=== PATIENT | female | born 1995 | race Two or more races ===

== ENCOUNTER 2024-04-29 13:55 | Emergency (ER) | payer MEDICAID, SELFPAY ==
[2024-04-29 13:56] VITALS: BMI 25.1
[2024-04-29 14:07] VITALS: BP 136/88; PULSE 80; RESP 18; TEMP 36.9; O2SAT 96
--- NOTE | 2024-04-29 14:17 | EDNOTE_ITS ---
Upper Respiratory Inf. RME/HPI General Chief Complaint: Flu Like Symptoms Stated Complaint: SORE THROAT, DISCHARGE FROM EYES, EAR PAIN Time Seen by Provider: 04/29/24 14:04 Arrival date/time: 04/29/24 13:55 RME / HPI RME / HPI Narrative: 29-year-old female patient with no significant medical history, came in for evaluation regarding her. Patient's been having ear ache for several days, getting worse, associated with redness and yellowish discharge of the eyes bilateral for several days also. Also complaining of on and off fever. Denies any cough denies any other complaints no medications taken prior to arrival. Related Data Previous Rx's ?Medication ?Instructions ?Recorded acetaminophen-caffeine 500 mg-65 1 tab PO Q6H PRN pain #60 tabs 09/13/21 mg tablet (Excedrin Tension Headache) ibuprofen 600 mg tablet 600 mg PO Q6H PRN pain #30 tabs 09/13/21 loratadine 10 mg tablet 10 mg PO QDAY #30 tabs 02/26/23 ibuprofen 600 mg tablet 600 mg PO TID PRN pain #30 tabs 07/30/23 amoxicillin 875 mg-potassium 1 tab PO BID #14 tabs 04/29/24 clavulanate 125 mg tablet neomycin 3.5 mg-polymyxin 10,000 1 drp ophthalmic (eye) TID 7 days 04/29/24 unit-hydrocort 10 mg/mL eye #7.5 mL drop,susp Allergies Allergy/AdvReac Type Severity Reaction Status Date / Time No Known Allergies Allergy Verified 04/29/24 13:58 Review of Systems Review of Systems Narrative Review of Systems: Review of system reviewed and within normal limits except mentioned in HPI ED Exam Narrative Physical exam: VITAL SIGNS: Reviewed. GENERAL APPEARANCE: Alert and interactive, follows commands, no acute distress, HEAD AND FACE: Non-traumatic. ENT: PERRL, injected conjunctiva, with yellowish crusting noted on the eyelids, eyelid no trauma, Mucous membrane moist. Bilateral tympanic membrane with erythema, bulging and tender NECK: Supple, nontender, no nuchal rigidity. CHEST: No tenderness, no crepitus, no paradoxical movement, no retractions. LUNGS: Clear, well ventilated, symmetric, no rales, no wheezing, no ronchi, no stridor, good breath sounds bilaterally. HEART: Regular rate, regular rhythm, no murmur, no gallops. GENITAL: Deferred. NEUROLOGICAL: Gross motor function intact sensory function intact, Appropriate for age. MUSCULOSKELETAL: low back nontender, full range of motion. EXTREMITIES: Nontender, full range of motion. SKIN: Color pink, dry, no rash, no lacerations, no abrasions, no contusions. LYMPHATICS: Deferred. Course Quality Measures none Orders Category Date Time Status Amoxicillin/Pot Clav 875 [Augmentin 875] Med 04/29/24 14:13 Discontinued 1 tab PO X1 ONE Erythromycin Op Oint 0.5% Med 04/29/24 14:11 Discontinued 0.1 gm BOTH EYES X1 ONE Erythromycin Op Oint 0.5% Med 04/29/24 14:11 Discontinued 0.1 gm BOTH EYES X1 ONE Vital Signs Vital signs: Vital Signs Temperature 98.4 F 04/29/24 14:07 Pulse Rate 80 04/29/24 14:07 Respiratory Rate 18 04/29/24 14:07 Blood Pressure 136/88 H 04/29/24 14:07 Pulse Oximetry (%) 96 04/29/24 14:07 Oxygen Delivery Method Room Air 04/29/24 14:07 Upper Respiratory Infection MDM Narrative MDM Narrative:: 29-year-old female patient with no significant medical history, came in for evaluation regarding her. Patient's been having ear ache for several days, getting worse, associated with redness and yellowish discharge of the eyes bilateral for several days also. Also complaining of on and off fever. Denies any cough denies any other complaints no medications taken prior to arrival. Patient was given Augmentin for otitis media. And was also given erythromycin eye ointment for eye infection. Patient stable discharge Patient data External records reviewed:: None Clinical information provided by:: none Social determinants that could affect healthcare access:: none Patient has the following chronic illnesses:: None How is presenting disease/condition affected by chronic disease/condition?: no chronic disease Evaluation data The following diagnostics were reviewed and interpreted by me:: other (specify) (None) Lab and/or radiology exams considered but not ordered:: none Interpretation Summary: None Medications / Prescriptions Medications or Prescriptions considered but not ordered:: None Medication administrations:: Medication Administration History Discontinued Medications Amoxicillin/Clavulanate Potassium (Amoxicillin/Pot Clav 875 Tablet) 1 tab PO X1 ONE Stop: 04/29/24 14:14 Erythromycin (Erythromycin Op Oint 0.5% 1 Gm Packet) 0.1 gm BOTH EYES X1 ONE Stop: 04/29/24 14:12 Erythromycin (Erythromycin Op Oint 0.5% 1 Gm Packet) 0.1 gm BOTH EYES X1 ONE Stop: 04/29/24 14:12 Amoxicillin stability cassette, erythromycin Consultations Consultation(s) initiated? (list below): No Diagnosis Upper Respiratory Differential Diagnosis: upper respiratory infection, viral infection and other (Otitis media, conjunctivitis) Most likely diagnosis given after review of the tests above:: Otitis media, conjunctivitis Admission Indicated Admission indicated?: not indicated Explain why admission is indicated or not indicated:: Stable for discharge Admission Request Was there a request for admission?: No Disposition Plan Disposition Plan: Discharge Discharge Attestation Discharge Attestation: The patient was given an opportunity to ask questions and understood the discharge instructions. Discharge instructions specifically effects, indications for sooner follow up or return to the emergency department, and the expected course of current diagnosis. Patient condition: Stable Discharge Plan Plan Patient Disposition: HOME (Self Care) Disposition Comment: stable Prescriptions/Referrals Prescriptions/Med Rec: New amoxicillin-pot clavulanate 875-125 mg tablet 1 tab PO BID Qty: 14 0RF [id number] 3.5-10,000-10 mg-unit-mg/mL drops,suspension 1 drp ophthalmic (eye) TID 7 Days Qty: 7.5 0RF No Action ibuprofen 600 mg tablet 600 mg PO Q6H PRN (Reason: pain) Qty: 30 0RF Excedrin Tension Headache 500-65 mg tablet 1 tab PO Q6H PRN (Reason: pain) Qty: 60 0RF ibuprofen 600 mg tablet 600 mg PO TID PRN (Reason: pain) Qty: 30 0RF loratadine 10 mg tablet 10 mg PO QDAY Qty: 30 0RF Problem List Clinical Impression: Otitis media, Conjunctivitis Patient/Caregiver Discharge Instructions Discharge Activity: activity as tolerated Education Materials: ED Otitis Media Antibiotic ... Additional Instructions: Thank you for the opportunity for serving you today. You are stable for discharged . You are advised to: Follow-up with your PCP in 1 to 2 days Return to ED for worsening of symptoms Increase oral fluids Take medication as prescribed Print Language: Italian Stand Alone Forms: Lisa Award Info., Patient Portal Info Letter PA/COMPETENCY EVALUATED NURSE AIDE Supervising Physician PA/COMPETENCY EVALUATED NURSE AIDE Supervising Physician: MD Gabbi
[2024-04-29] MEDS: AMOXICILLIN/POT CLAV 875 TABLET 1 TAB PO (14:22)
[2024-04-29] MEDS: Erythromycin Op Oint 0.5% 1 GM PACKET BOTH EYES (14:22)
== END 2024-04-29 14:37 | disposition home or self-care (01) ==
LOC: SERX 14:34
PROVIDERS: Emergency Provider Emergency Medicine; PCP Family Medicine
DX: H66.93 Otitis media, unspecified, bilateral (principal); H10.9 Unspecified conjunctivitis
CPT/HCPCS: 99282; A9270

== ENCOUNTER 2024-06-11 20:19 | Emergency (ER) | payer MEDICAID, SELFPAY ==
[2024-06-11 20:35] VITALS: BP 109/86; PULSE 74; RESP 18; TEMP 37.2; O2SAT 100
--- NOTE | 2024-06-11 20:49 | EDNOTE_ITS ---
ED Eye Problem RME/HPI General Chief complaint: Head Injury Stated complaint: SOMETHING FELL ON HER FACE Time Seen by Provider: 06/11/24 20:27 Source: patient, RN notes reviewed and old records reviewed Arrival date/time: 06/11/24 20:19 Mode of arrival: ambulatory Limitations: no limitations RME / HPI RME / HPI Narrative: 29yof presents to the ED for left eye redness and irritation today. 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 Patient irrigated and washed out left eye prior to ED arrival without relief. No vision changes, floaters, discharge or light sensitivity reported Related Data Previous Rx's ?Medication ?Instructions ?Recorded acetaminophen-caffeine 500 mg-65 1 tab PO Q6H PRN pain #60 tabs 09/13/21 mg tablet (Excedrin Tension Headache) ibuprofen 600 mg tablet 600 mg PO Q6H PRN pain #30 tabs 09/13/21 loratadine 10 mg tablet 10 mg PO QDAY #30 tabs 02/26/23 ibuprofen 600 mg tablet 600 mg PO TID PRN pain #30 tabs 07/30/23 amoxicillin 875 mg-potassium 1 tab PO BID #14 tabs 04/29/24 clavulanate 125 mg tablet ciprofloxacin HCl 0.3 % eye drops See Rx Instructions ophthalmic 06/11/24 (eye) .COMPLEX #5 mL Allergies Allergy/AdvReac Type Severity Reaction Status Date / Time No Known Allergies Allergy Verified 06/11/24 20:23 Review of Systems Review of Systems Systems Reviewed: All systems reviewed, normal except as documented Eyes Eyes: Denies blurry vision, Denies eye discharge, Denies floaters, Reports irritation and Denies photophobia Comments: Reports redness Past Medical History Surgical History OTHER SURGICAL HX: Denies past surgical history appendectomy Social History SMOKING STATUS: Never smoker SUBSTANCE USE: does not use ALCOHOL: Never Past Medical History Comments PMH COMMENT: Denies past medical history ED Exam General Limitations: Present no limitations General appearance: Present alert and in no apparent distress Head Head exam: Present atraumatic and normocephalic Eye Eye exam: Present PERRL, EOMI and conjunctival injection (Left); Absent periorbital swelling or periorbital tenderness ENT ENT exam: Present normal exam and mucous membranes moist Neck Neck exam: Present normal inspection and full ROM Chest Chest inspection: Present normal inspection and symmetric chest wall rise Respiratory Respiratory exam: Present normal lung sounds bilaterally; Absent respiratory distress Cardiovascular Cardiovascular exam: Present regular rate and normal rhythm Extremities Exam Extremities exam: Present normal inspection and full ROM Neurological Exam Neurological exam: Present alert and oriented X3 Psychiatric Psychiatric exam: Present normal affect and normal mood Skin Skin exam: Present warm, dry and intact; Absent rash Course Quality Measures none Orders Category Date Time Status Gonsalez Lamp to Bedside X1 Care 06/11/24 20:49 Completed Fluorescein Sodium [[id number]] Med 06/11/24 20:49 Discontinued 1 mg LEFT EYE X1 ONE TETRACAINE Op Sarah 0.5% [Pontocaine Op Sarah 0.5%] Med 06/11/24 20:49 Discontinued 1 drop LEFT EYE X1 ONE Vital Signs Vital signs: Vital Signs Temperature 98.9 F 06/11/24 20:35 Pulse Rate 74 06/11/24 20:35 Respiratory Rate 18 06/11/24 20:35 Blood Pressure 109/86 H 06/11/24 20:35 Pulse Oximetry (%) 100 06/11/24 20:35 Oxygen Delivery Method Room Air 06/11/24 20:35 Procedures -ED Gonsalez Lamp Exam Left eye: Flourescein uptake:: Yes Gonsalez Lamp Findings: Corneal abrasion Additional comments: No FB Eye MDM Narrative MDM Narrative:: 29yof presents to the ED for left eye redness and irritation today. 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 Patient irrigated and washed out left eye prior to ED arrival without relief. No vision changes, floaters, discharge or light sensitivity reported Exam findings c/w corneal abrasion and conjunctivitis. Will rx prophylactic antibiotic drops. Encouraged cool compresses. Stable for discharge, RTED precautions given for Patient data External records reviewed:: [facility] previous records (04/29/2024 ED visit for conjunctivitis) Clinical information provided by:: patient Social determinants that could affect healthcare access:: other (specify) (Poor access to healthcare, acculturation difficulty) Patient has the following chronic illnesses:: None How is presenting disease/condition affected by chronic disease/condition?: no chronic disease Evaluation data The following diagnostics were reviewed and interpreted by me:: other (specify) (None) Lab and/or radiology exams considered but not ordered:: CT orbits: No history of trauma Interpretation Summary: na Medications / Prescriptions Medications or Prescriptions considered but not ordered:: None Medication administrations:: Medication Administration History Discontinued Medications Fluorescein Sodium (Fluorescein Sod 1 Mg Strp) 1 mg LEFT EYE X1 ONE Stop: 06/11/24 20:50 Last Admin: 06/11/24 21:25 Dose: 1 mg Documented By: RAMAN Tetracaine HCl (Tetracaine Pf Op Sarah 0.5% 4 Ml Drpette) 1 drop LEFT EYE X1 ONE Stop: 06/11/24 20:50 Last Admin: 06/11/24 21:25 Dose: 1 drop Documented By: RAMAN Above medications administered in ED Consultations Consultation(s) initiated? (list below): No Diagnosis Eye Problem Differential Diagnosis: corneal abrasion, conjunctivitis, acute iritis, hyphema, periorbital cellulitis, subconjunctival hemorrhage, corneal ulcer and ruptured globe Most likely diagnosis given after review of the tests above:: Corneal abrasion, conjunctivitis Admission Indicated Admission indicated?: not indicated Admission Request Was there a request for admission?: No Disposition Plan Disposition Plan: Discharge Discharge Attestation Discharge Attestation: The patient and all family members were given an opportunity to ask questions and understood the discharge instructions. Discharge instructions specifically effects, indications for sooner follow up or return to the emergency department, and the expected course of current diagnosis. Patient condition: Stable Discharge Plan Plan Patient Disposition: HOME (Self Care) Patient condition on transfer: Stable Prescriptions/Referrals Prescriptions/Med Rec: New ciprofloxacin HCl 0.3 % drops See Rx Instructions .ROUTE .COMPLEX Qty: 5 0RF Rx Instructions: put 1-2 drps in affected eye every 2hr while awake x2 days; then every 4hr x5 days No Action ibuprofen 600 mg tablet 600 mg PO Q6H PRN (Reason: pain) Qty: 30 0RF Excedrin Tension Headache 500-65 mg tablet 1 tab PO Q6H PRN (Reason: pain) Qty: 60 0RF ibuprofen 600 mg tablet 600 mg PO TID PRN (Reason: pain) Qty: 30 0RF amoxicillin-pot clavulanate 875-125 mg tablet 1 tab PO BID Qty: 14 0RF loratadine 10 mg tablet 10 mg PO QDAY Qty: 30 0RF Problem List Clinical Impression: Corneal abrasion, left Patient/Caregiver Discharge Instructions Education Materials: ED Corneal Abrasion Print Language: Fijian Stand Alone Forms: Lisa Award Info., Patient Portal Info Letter PA/ANTI TANK MISSILEMAN Supervising Physician PA/ANTI TANK MISSILEMAN Supervising Physician: Jennifer
[2024-06-11] MEDS: FLUORESCEIN SOD 1 MG STRP LEFT EYE (21:25)
[2024-06-11] MEDS: TETRACAINE PF OP SOL 0.5% 4 ML DRPETTE 1 DROP LEFT EYE (21:25)
== END 2024-06-11 23:19 | disposition home or self-care (01) ==
PROVIDERS: Emergency Provider Emergency Medicine; PCP Family Medicine
DX: S05.02XA Injury of conjunctiva and corneal abrasion without foreign body, left eye, initial encounter (principal); X58.XXXA Exposure to other specified factors, initial encounter
CPT/HCPCS: 99283